=== PATIENT | female | born 1955 | race Caucasian/White ===

== ENCOUNTER → 2016-05-07 | Outpatient (REF) | payer MEDICARE ==
[~2016-05-07] MED LIST: ABILIFY PO; ASPI81TA85 PO; BUPROPION PO; CITALOPRAM PO; CRES5TAB PO; FURO20TA PO; FUROSIMIDE PO; PERCOCET PO; RITALIN PO; [UNRECOGNIZED DRUG - OTHER] PO
== END ==
LOC: M SFHCCLAY 07:16
PROVIDERS: ATTEND Family Medicine
DX: Z95.5 Presence of coronary angioplasty implant and graft (principal)

== ENCOUNTER → 2016-06-27 | Outpatient (REF) | payer MEDICARE | LOC: M SFHCCLAY 07:08 | PROVIDERS: ATTEND Family Medicine | DX: Z95.5 Presence of coronary angioplasty implant and graft (principal); I25.10 Atherosclerotic heart disease of native coronary artery without angina pectoris ==

== ENCOUNTER → 2017-01-11 | Outpatient (REF) | payer MEDICARE ==
[2017-01-11 12:34] LABS: ALBUMIN 3.9 GM/DL (3.2-5.2); ANION GAP 8 MEQ/L (8-16); BLOOD UREA NITROGEN 18 MG/DL (7-18); CALCIUM LEVEL 9.7 MG/DL (8.8-10.2); CARBON DIOXIDE LEVEL 31 MEQ/L (21-32); CHLORIDE LEVEL 104 MEQ/L (98-107); CHOLESTEROL LEVEL 159 MG/DL (<200); GLOMERULAR FILTRATION RATE > 60.0 (>45); GLUCOSE, FASTING 76 MG/DL (80-110); PHOSPHORUS LEVEL 4.5 MG/DL (2.5-4.9); POTASSIUM SERUM 4.7 MEQ/L (3.5-5.1); SODIUM LEVEL 143 MEQ/L (136-145); TRIGLYCERIDES LEVEL 70 MG/DL (<150)
== END ==
LOC: M LABDRAWC 11:34
PROVIDERS: ATTEND Nurse Practitioner Family
DX: I25.10 Atherosclerotic heart disease of native coronary artery without angina pectoris (principal); I10 Essential (primary) hypertension

== ENCOUNTER → 2017-04-10 | Outpatient (REF) | payer MEDICARE ==
[2017-04-10 11:09] LABS: HEMATOCRIT 43.4 % (36.0-47.0); HEMOGLOBIN 14.1 g/dl (12.0-16.0); MEAN CORPUSCULAR HEMOGLOBIN 31.2 pg (27.0-33.0); MEAN CORPUSCULAR HGB CONC 32.5 g/dl (32.0-36.5); PLATELET COUNT, AUTOMATED 230 10^3/uL (150-450); RED BLOOD COUNT 4.52 10^6/uL (4.00-5.40); RED CELL DISTRIBUTION WIDTH 12.2 % (11.5-14.5); WHITE BLOOD COUNT 5.8 10^3/uL (4.0-10.0)
[2017-04-10 11:38] LABS: ERYTHROCYTE SEDIMENTATION RATE 4 mm/hr (0-30)
[2017-04-10 11:56] LABS: ALBUMIN 4.6 GM/DL (3.2-5.2); ALBUMIN/GLOBULIN RATIO 1.64 (1.00-1.93); ALKALINE PHOSPHATASE 129 U/L (45-117); ALT/SGPT 35 U/L (12-78); ANION GAP 8 MEQ/L (8-16); AST/SGOT 24 U/L (7-37); BILIRUBIN,TOTAL 0.4 MG/DL (0.2-1.0); BLOOD UREA NITROGEN 21 MG/DL (7-18); CALCIUM LEVEL 9.4 MG/DL (8.8-10.2); CARBON DIOXIDE LEVEL 30 MEQ/L (21-32); CHLORIDE LEVEL 104 MEQ/L (98-107); CREATININE FOR GFR 0.88 MG/DL (0.55-1.30); GLOMERULAR FILTRATION RATE > 60.0 (>45); GLUCOSE, FASTING 76 MG/DL (70-100); POTASSIUM SERUM 3.7 MEQ/L (3.5-5.1); SODIUM LEVEL 142 MEQ/L (136-145); TOTAL PROTEIN 7.4 GM/DL (6.4-8.2)
[2017-04-10 12:10] LABS: TOTAL PROTEIN 7.4 GM/DL (6.4-8.2)
[2017-04-10 12:58] LABS: ALBUMIN 4.53 GM/DL (3.29-5.55); ALBUMIN % 61.2 % (55.8-66.1); ALPHA-2-GLOBULINS 0.94 GM/DL (0.42-0.99); ALPHA-2-GLOBULINS % 12.7 % (7.1-11.8); BETA-1-GLOBULINS 0.52 GM/DL (0.28-0.60); BETA-2-GLOBULINS 0.42 GM/DL (0.19-0.55); BETA-2-GLOBULINS % 5.7 % (3.2-6.5); GAMMA GLOBULIN % 9.4 % (11.1-18.8)
[2017-04-10 14:27] LABS: IMMUNOTYPING SERUM IGG ABNORMAL (NORMAL); IMMUNOTYPING SERUM KAPPA ABNORMAL (NORMAL)
== END ==
LOC: M SFHCCLAY 08:14
DX: M89.8X9 Other specified disorders of bone, unspecified site (principal)
CPT/HCPCS: 84165

== ENCOUNTER → 2017-04-17 | Outpatient (CLI) | payer MEDICARE | LOC: M RAD 10:11 | DX: M51.06 Intervertebral disc disorders with myelopathy, lumbar region (principal); M48.062 Spinal stenosis, lumbar region with neurogenic claudication; M89.8X9 Other specified disorders of bone, unspecified site | CPT/HCPCS: 72148 ==

== ENCOUNTER → 2017-04-25 | Outpatient (REF) | payer MEDICARE ==
[2017-04-25 19:53] LABS: IMMUNOGLOBULIN G 703 MG/DL (681-1648); IMMUNOGLOBULIN M 31.6 MG/DL (40-230); TOTAL PROTEIN 7.1 GM/DL (6.4-8.2)
[2017-04-26 12:59] LABS: ALBUMIN 4.58 GM/DL (3.29-5.55); ALBUMIN % 64.5 % (55.8-66.1); ALPHA-1-GLOBULIN % 3.6 % (2.9-4.9); ALPHA-1-GLOBULINS 0.26 GM/DL (0.17-0.41); ALPHA-2-GLOBULINS 0.68 GM/DL (0.42-0.99); ALPHA-2-GLOBULINS % 9.6 % (7.1-11.8); BETA-1-GLOBULINS 0.47 GM/DL (0.28-0.60); BETA-1-GLOBULINS % 6.6 % (4.7-7.2); BETA-2-GLOBULINS % 5.7 % (3.2-6.5); GAMMA GLOBULINS 0.71 GM/DL (0.65-1.58)
[2017-04-28 00:07] LABS: FREE KAPPA LIGHT CHAINS SERUM 19.4 mg/L (3.3-19.4); FREE LAMBDA LIGHT CHAINS SERUM 16.8 mg/L (5.7-26.3); KAPPA/LAMBDA RATIO SERUM 1.15 (0.26-1.65)
== END ==
LOC: M LAB REF 17:19
DX: R77.9 Abnormality of plasma protein, unspecified (principal); D47.2 Monoclonal gammopathy
CPT/HCPCS: 84165

== ENCOUNTER → 2017-04-28 | Outpatient (REF) | payer MEDICARE ==
[2017-04-28 11:17] LABS: URINE VOLUME 1200 ML
[2017-04-28 11:35] LABS: TOTAL PROTEIN,RANDOM URINE 9.7 MG/DL (0.0-12.0); URINE TOTAL PROTEIN 9.7 MG/DL (0-12)
== END ==
LOC: M LAB REF 10:59
DX: D47.2 Monoclonal gammopathy (principal)

== ENCOUNTER → 2017-04-28 | Outpatient (CLI) | payer MEDICARE | LOC: M RAD 10:19 | DX: D47.2 Monoclonal gammopathy (principal); M25.78 Osteophyte, vertebrae; M51.36 Other intervertebral disc degeneration, lumbar region; M41.86 Other forms of scoliosis, lumbar region; M51.34 Other intervertebral disc degeneration, thoracic region; R93.8 Abnormal findings on diagnostic imaging of other specified body structures | CPT/HCPCS: 77075 ==

== ENCOUNTER → 2017-05-09 | Outpatient (CLI) | payer MEDICARE ==
[~2017-05-09] MED LIST changes: -ABILIFY PO; -ASPI81TA85 PO; -BUPROPION PO; -CITALOPRAM PO; -CRES5TAB PO; -FURO20TA PO; -FUROSIMIDE PO; -PERCOCET PO; +PROHANCE 279.3MG/ML 15ML VIAL (A9576) As Ordered; -RITALIN PO; -[UNRECOGNIZED DRUG - OTHER] PO
== END ==
LOC: M RAD 13:19
DX: D47.2 Monoclonal gammopathy (principal)
CPT/HCPCS: A9576

== ENCOUNTER → 2017-11-06 | Outpatient (REF) | payer MEDICARE ==
[2017-11-06 14:12] LABS: IMMUNOGLOBULIN G 804 MG/DL (681-1648); IMMUNOGLOBULIN M 32 MG/DL (40-230); TOTAL PROTEIN 7.4 GM/DL (6.4-8.2)
[2017-11-08 00:06] LABS: FREE KAPPA LIGHT CHAINS SERUM 22.1 mg/L (3.3-19.4); FREE LAMBDA LIGHT CHAINS SERUM 19.5 mg/L (5.7-26.3); KAPPA/LAMBDA RATIO SERUM 1.13 (0.26-1.65)
[2017-11-11 15:06] LABS: ALBUMIN 4.71 GM/DL (3.29-5.55); ALBUMIN % 63.7 % (55.8-66.1); ALPHA-1-GLOBULIN % 3.9 % (2.9-4.9); ALPHA-1-GLOBULINS 0.29 GM/DL (0.17-0.41); ALPHA-2-GLOBULINS 0.73 GM/DL (0.42-0.99); ALPHA-2-GLOBULINS % 9.8 % (7.1-11.8); BETA-1-GLOBULINS 0.47 GM/DL (0.28-0.60); BETA-1-GLOBULINS % 6.4 % (4.7-7.2); BETA-2-GLOBULINS 0.43 GM/DL (0.19-0.55); BETA-2-GLOBULINS % 5.8 % (3.2-6.5); GAMMA GLOBULIN % 10.4 % (11.1-18.8); GAMMA GLOBULINS 0.77 GM/DL (0.65-1.58)
== END ==
LOC: M LAB REF 13:05
DX: Z00.00 Encounter for general adult medical examination without abnormal findings (principal)

== ENCOUNTER → 2018-03-11 | Outpatient (REF) | payer MEDICARE ==
[~2018-03-11] MED LIST changes: +ABILIFY PO; +ASPI81TA85 PO; +BUPROPION PO; +CITALOPRAM PO; +CRES5TAB PO; +FURO20TA PO; +FUROSIMIDE PO; +PERCOCET PO; -PROHANCE 279.3MG/ML 15ML VIAL (A9576) As Ordered; +RITALIN PO; +[UNRECOGNIZED DRUG - OTHER] PO
[2018-03-11 17:13] LABS: HEMATOCRIT 43.2 % (36.0-47.0); HEMOGLOBIN 13.8 g/dl (12.0-15.5); MEAN CORPUSCULAR HEMOGLOBIN 30.3 pg (27.0-33.0); MEAN CORPUSCULAR HGB CONC 31.9 g/dl (32.0-36.5); MEAN CORPUSCULAR VOLUME 94.7 fl (80.0-96.0); PLATELET COUNT, AUTOMATED 270 10^3/uL (150-450); RED BLOOD COUNT 4.56 10^6/uL (4.00-5.40); WHITE BLOOD COUNT 4.9 10^3/uL (4.0-10.0)
[2018-03-11 17:31] LABS: ALT/SGPT 83 U/L (12-78); BILIRUBIN,TOTAL 0.3 MG/DL (0.2-1.0); BLOOD UREA NITROGEN 16 MG/DL (7-18); CALCIUM LEVEL 8.9 MG/DL (8.8-10.2); CARBON DIOXIDE LEVEL 30 MEQ/L (21-32); CHLORIDE LEVEL 105 MEQ/L (98-107); CHOLESTEROL LEVEL 149 MG/DL (<200); CHOLESTEROL RISK RATIO 2.328 (<5); FREE T4 0.91 NG/DL (0.76-1.46); GLOMERULAR FILTRATION RATE > 60.0 (>45); GLUCOSE, FASTING 81 MG/DL (70-100); HDL CHOLESTEROL 64 MG/DL (>40); LDL CHOLESTEROL 70 MG/DL (<100); NON-HDL-C 85 MG/DL; POTASSIUM SERUM 3.8 MEQ/L (3.5-5.1); SODIUM LEVEL 142 MEQ/L (136-145); TOTAL PROTEIN 6.9 GM/DL (6.4-8.2); TRIGLYCERIDES LEVEL 76 MG/DL (<150)
[2018-03-11 17:57] LABS: APPEARANCE, URINE CLEAR (CLEAR); BACTERIA, URINE AUTO NEGATIVE (NEGATIVE); BILIRUBIN, URINE AUTO NEGATIVE (NEGATIVE); BLOOD, URINE BLOOD NEGATIVE (NEGATIVE); COLOR, URINE YELLOW (YELLOW); GLUCOSE, URINE (UA) AUTO NEGATIVE (NEGATIVE); KETONE, URINE AUTO NEGATIVE (NEGATIVE); LEUKOCYTE ESTERASE, URINE AUTO NEGATIVE (NEGATIVE); MUCUS, URINE SMALL (NEGATIVE); NITRITE, URINE AUTO NEGATIVE (NEGATIVE); PROTEIN, URINE AUTO NEGATIVE (NEGATIVE); RBC, URINE AUTO 0 /HPF (0-3); SPECIFIC GRAVITY URINE AUTO 1.008 (1.002-1.035); SQUAMOUS EPITHELIAL CELL UR AU 0 /HPF (0-6); TRANSITIONAL EPITHELIAL AUTO <1 /HPF; UROBILINOGEN, URINE AUTO 0.2 mg/dL (0.0-2.0); WBC, URINE AUTO 1 /HPF (0-3)
== END ==
LOC: M SFHCCLAY 10:39
PROVIDERS: ATTEND Family Medicine
DX: Z00.00 Encounter for general adult medical examination without abnormal findings (principal); M89.8X9 Other specified disorders of bone, unspecified site; Z95.5 Presence of coronary angioplasty implant and graft; M48.062 Spinal stenosis, lumbar region with neurogenic claudication; R53.82 Chronic fatigue, unspecified; L74.9 Eccrine sweat disorder, unspecified

== ENCOUNTER → 2018-04-15 | Outpatient (REF) | payer MEDICARE ==
[2018-04-15 18:31] LABS: ALBUMIN 4.2 GM/DL (3.2-5.2); BILIRUBIN,DIRECT 0.1 MG/DL (0.0-0.2); BILIRUBIN,TOTAL 0.5 MG/DL (0.2-1.0); TOTAL PROTEIN 7.2 GM/DL (6.4-8.2)
== END ==
LOC: M SFHCCLAY 11:02
PROVIDERS: ATTEND Family Medicine
DX: R94.5 Abnormal results of liver function studies (principal)

== ENCOUNTER → 2018-05-02 | Outpatient (CLI) | payer MEDICARE ==
--- NOTE | 2018-05-02 08:44 | REP ---
However quadrant sonography: History: Abnormal liver enzymes. Comparison CT study December 09, 2015. Findings: The gallbladder is surgically absent. There is a slightly coarse liver texture. No focal liver mass lesion is seen. No pancreatic abnormalities observed. The liver is not felt to be enlarged. Common bile duct is normal post cholecystectomy at 0.95 cm. No right renal abnormality is seen. The right kidney measures 11.0 x 4.3 x 4.2 cm. There is no evidence of ascites. Impression: Slightly coarse liver texture. No hepatomegaly or focal liver lesion. Post cholecystectomy. Otherwise negative. Electronically Signed by Shon Rodríguez MD 05/02/2018 08:36 A
[2018-05-02 08:57] LABS: TOTAL PROTEIN 6.7 GM/DL (6.4-8.2)
[2018-05-02 10:25] LABS: HEPATITIS B SURFACE ANTIBODY NEGATIVE (POSITIVE)
[2018-05-02 10:31] LABS: HEPATITIS B SURFACE ANTIGEN NEGATIVE (NEGATIVE)
[2018-05-02 10:58] LABS: HEPATITIS C VIRUS ABY INDEX < 0.0 INDEX (<0.8)
[2018-05-06 00:07] LABS: Alkaline Phosphatase Iso-Bone 58 % (14-68); Alkaline Phosphatase Iso-Intes 0 % (0-18); Alkaline Phosphatase Iso-Liver 42 % (18-85); TOTAL ALK PHOS 124 IU/L (39-117)
[2018-05-06 13:40] LABS: ALBUMIN % 63.7 % (55.8-66.1)
[2018-05-06 13:41] LABS: ALBUMIN 4.27 GM/DL (3.29-5.55); ALPHA-1-GLOBULINS 0.27 GM/DL (0.17-0.41); ALPHA-2-GLOBULINS 0.65 GM/DL (0.42-0.99); ALPHA-2-GLOBULINS % 9.7 % (7.1-11.8); BETA-1-GLOBULINS 0.44 GM/DL (0.28-0.60); BETA-1-GLOBULINS % 6.5 % (4.7-7.2); GAMMA GLOBULIN % 10.1 % (11.1-18.8); GAMMA GLOBULINS 0.68 GM/DL (0.65-1.58)
== END ==
LOC: M RAD 07:28
PROVIDERS: ATTEND Family Medicine
DX: R74.8 Abnormal levels of other serum enzymes (principal); Z90.49 Acquired absence of other specified parts of digestive tract; K76.89 Other specified diseases of liver

== ENCOUNTER → 2018-05-16 | Outpatient (CLI) | payer MEDICARE ==
[~2018-05-16] MED LIST changes: +ADDE20CA3 PO; +ASPI81TA26 PO; +BUPR1TAB56 PO; +CALCTAB41 PO; +CITA40TA6 PO; +COQ1200C2 PO; +FURO40TA2 PO; +GLUC1CAP10 PO; +MULT1TAB10 PO; +OXYC1TAB23 PO; +PANT40TA3 PO; +PERC5TAB12 PO; -PERCOCET PO; +VITA PO; +VITA400C7 PO; +VITA500T PO
--- NOTE | 2018-05-16 13:14 | REPMRS ---
Patient History The patient states she had a clinical breast exam in 04/2018. Patient is postmenopausal and is nulliparous. No known family history of cancer. No Hormone Replacement Therapy 3D TOMOSYNTHESIS WAS PERFORMED. Digital Woman Screen Mammo: May 16, 2018 - Exam #: [id number] Bilateral CC and MLO view(s) were taken. Technologist: Maria L Hemphill, Technologist Prior study comparison: January 02, 2016, digital woman screen mammo performed at [facility]. June 26, 2013, digital woman screen mammo performed at [facility] to [facility]. FINDINGS: There are scattered fibroglandular densities. There has been no change in the appearance of the mammogram from the prior studies. There is a mild amount of residual fibroglandular tissue which is fairly symmetric. There is no interval development of dominant mass, architectural distortion, or clustered microcalcification suggestive of malignancy. Assessment: BI-RADS/ACR category 1 mammogram. Negative Mammogram. Recommendation Routine screening mammogram in 1 year (for women over age 40). This mammogram was interpreted with the aid of an FDA-approved computer-aided dectection system. Electronically Signed By: Parth Lucas MD 05/16/18 [id number]
== END ==
LOC: M WHC 11:04
PROVIDERS: ATTEND Nurse Practitioner Family
DX: Z01.419 Encounter for gynecological examination (general) (routine) without abnormal findings (principal); Z12.31 Encounter for screening mammogram for malignant neoplasm of breast; Z78.0 Asymptomatic menopausal state; N95.2 Postmenopausal atrophic vaginitis; Z12.12 Encounter for screening for malignant neoplasm of rectum; F33.1 Major depressive disorder, recurrent, moderate; F10.20 Alcohol dependence, uncomplicated
CPT/HCPCS: 77063; 77067; 82270; G0101; G0123

== ENCOUNTER → 2018-05-16 | Outpatient (REF) | payer MEDICARE ==
[~2018-05-16] MED LIST changes: +ASPI1TAB PO; -ASPI81TA26 PO; +CITA-231 PO; -CITA40TA6 PO; -OXYC1TAB23 PO; -PERC5TAB12 PO; +PERCOCET PO
== END ==
LOC: M SFHCWAGY 11:15
PROVIDERS: ATTEND Nurse Practitioner Family
DX: Z12.4 Encounter for screening for malignant neoplasm of cervix (principal); N95.2 Postmenopausal atrophic vaginitis

== ENCOUNTER → 2018-05-22 | Outpatient (REF) | payer MEDICARE ==
[~2018-05-22] MED LIST changes: -ASPI1TAB PO; +ASPI81TA26 PO; -CITA-231 PO; +CITA40TA6 PO; +OXYC1TAB23 PO; +PERC5TAB12 PO; -PERCOCET PO
[2018-05-22 16:45] LABS: BLOOD UREA NITROGEN 23 MG/DL (7-18); CALCIUM LEVEL 9.3 MG/DL (8.8-10.2); CARBON DIOXIDE LEVEL 30 MEQ/L (21-32); CHLORIDE LEVEL 106 MEQ/L (98-107); CREATININE FOR GFR 0.88 MG/DL (0.55-1.30); GLOMERULAR FILTRATION RATE > 60.0 (>45); GLUCOSE, FASTING 86 MG/DL (70-100); POTASSIUM SERUM 3.6 MEQ/L (3.5-5.1); SODIUM LEVEL 143 MEQ/L (136-145)
[2018-05-22 17:15] LABS: HEMATOCRIT 42.5 % (36.0-47.0); HEMOGLOBIN 13.4 g/dl (12.0-15.5); MEAN CORPUSCULAR HGB CONC 31.5 g/dl (32.0-36.5); MEAN CORPUSCULAR VOLUME 95.1 fl (80.0-96.0); PLATELET COUNT, AUTOMATED 284 10^3/uL (150-450); RED BLOOD COUNT 4.47 10^6/uL (4.00-5.40); WHITE BLOOD COUNT 4.7 10^3/uL (4.0-10.0)
[2018-05-22 18:05] LABS: PARTIAL THROMBOPLASTIN TIME 25.9 SECONDS (25.4-37.6)
[2018-05-22 18:14] LABS: INR 1.07
== END ==
LOC: M SFHCCLAY 10:16
PROVIDERS: ATTEND Family Medicine
DX: M48.061 Spinal stenosis, lumbar region without neurogenic claudication (principal); Z95.5 Presence of coronary angioplasty implant and graft; K21.9 Gastro-esophageal reflux disease without esophagitis; S60.10XA Contusion of unspecified finger with damage to nail, initial encounter; X58.XXXA Exposure to other specified factors, initial encounter; Y92.89 Other specified places as the place of occurrence of the external cause
CPT/HCPCS: 80048; 85027; 85610; 85730; G0463

== ENCOUNTER 2018-06-02 14:15 | Inpatient (IN) | payer MEDICARE ==
[~2018-06-02] VITALS: Ht 157.5 cm; Wt 80.3 kg
[~2018-06-02 14:15] MED LIST changes: -PERC5TAB12 PO
--- NOTE | 2018-06-05 17:28 | HPE ---
DATE OF ADMISSION: 06/16/2018 ATTENDING PHYSICIAN: Dr. Tim Samuel CHIEF COMPLAINT: Back pain, pain down her left greater than her right leg. HISTORY: This is a pleasant 62-year-old female patient with progressively worsening back pain and pain radiating mainly down her left lower extremity but at times down her right lower extremity. She has failed to improve with conservative management to include gabapentin, physical therapy, rest and activity modification. She has elected or surgery for her continued symptoms. She has been consented by Dr. Samuel for a left unilateral laminectomy and fusion at L4-5 with the use of iliac crest bone graft as well as bone from the bone bank. MRI of her lumbar spine notable for spinal stenosis, most significantly at L4-5. There is a spondylolisthesis also noted at L4-5. X-rays notable for a dynamic spondylolisthesis measuring a change from 6-7 mm between flexion and extension views. Medical optimization by Dr. Montero as well as through her rating examiner, Dr. Lainez. CURRENT MEDICATIONS: - lysine 1000 mg three tablets once per day - Ritalin SR 20 mg one tablet three times a day - 81 mg aspirin once per day, she will discontinue that five days prior to surgery - selenium 200 mcg one tablet once per day - Celexa 40 mg one tablet once per day - bupropion HCl 200 mg one tablet twice per day - pantoprazole 40 mg one tablet once per day - tizanidine 2 mg two tablets in the morning, three tablets in the evening - Lasix 40 mg one and one-half tablet once per day ALLERGIES: No known drug allergies. PAST MEDICAL HISTORY: Includes: 1. Chronic fatigue syndrome. 2. Hypertension. 3. Coronary artery disease, 4. Depression. 5. History of three acute myocardial infarctions (MIs). 6. Fibromyalgia. 7. Lumbar spinal stenosis primarily at L4-5. PAST SURGICAL HISTORY: She has had ventral hernia repair, a gastric bypass, coronary artery stents, a ganglion cyst excision. FAMILY HISTORY: Noncontributory. REVIEW OF SYSTEMS: Denies fever or chills. Denies chest pain, shortness of breath, or cough. Denies difficulty breathing. Denies abdominal pain. Denies nausea or vomiting. Notes persistent pain in her back with pain mainly radiating down her left leg, some down her right leg. Denies any recent upper respiratory illness (URI) or urinary tract infection (UTI) symptoms. Denies loss of bowel or bladder control. PHYSICAL EXAMINATION: Reveals an alert female patient. She ambulates with a relatively normal gait. She does not use assistive devices. Her gait is not wide based. Straight leg raise testing is negative on examination. Light touch is intact in the lower extremities. There is some mild tenderness along the lumbar spine without step-offs or deviations. The skin around the back is intact. Neck is supple without adenopathy or jugular venous distention (JVD). Lungs are clear to auscultation without rales or wheeze. Heart: Regular rate and rhythm. Abdomen: Bowel sounds are present. Vital signs: Height 62 inches. Weight 181 pounds. Temperature 98.0, blood pressure 130/80, respiratory rate 14, pulse 70. LABORATORY DATA: None collected. IMPRESSION: Lumbar degenerative disc disease, lumbar spondylolisthesis at L4-5 that is dynamic in nature, spinal stenosis most notably at L4-5. PLAN: She is consented by Dr. Samuel for a left unilateral laminectomy at L4-5 and fusion with the use of pedicle screws at L4-5 and an iliac crest graft and bone from the bone bank.
[2018-06-16] MEDS ORDERED: PERCOCET 5MG/325MG TAB PO ONE (06:00)
[2018-06-16] MEDS ORDERED: LR 1,000 ML IV ONE (06:00)
[2018-06-16] MEDS ORDERED: BUPIVACAINE/EPIN 0.25% 30 ML VIAL As Ordered ONE (17:10)
[2018-06-16] MEDS ORDERED: THROMBIN SOLN 20,000 UNITS KIT As Ordered ONE (17:10)
[2018-06-16] MEDS ORDERED: BUPIVACAINE HCL 0.5% 10 ML VIAL As Ordered ONE (17:10)
[2018-06-16] MEDS ORDERED: TRANEXAMIC ACID 100 MG/ML 10ML VIAL As Ordered ONE (17:10)
[2018-06-16] MEDS ORDERED: EPINEPHrine INJ 1 MG/ML 1ML AMP As Ordered ONE (17:11)
[2018-06-16] MEDS ORDERED: VANCOMYCIN HCL 500 MG/10 ML VIAL (J3370) As Ordered ONE (17:11)
[2018-06-16] MEDS ORDERED: BACITRACIN PWD 50,000 UNITS VIAL As Ordered ONE (17:11)
[2018-06-16] MEDS ORDERED: BUPIVACAINE LIPOSOME/PF 1.3% 20ML VIAL (13.3MG/ML)(EXPAREL)(C9290 PER1MG) As Ordered ONE (17:11)
[2018-06-16] MEDS ORDERED: ROCURONIUM BROMIDE 50 MG/5 ML VIAL As Ordered ONE ×2 (18:41→19:57)
[2018-06-16] MEDS ORDERED: fentaNYL 100 MCG/2 ML INJECTION (J3010) As Ordered ONE (18:41)
[2018-06-16] MEDS ORDERED: LIDOCAINE 2% INJ 100 MG/5 ML SDV (FOR ANES.) As Ordered ONE (18:41)
[2018-06-16] MEDS ORDERED: PROPOFOL 200 MG/20 ML VIAL As Ordered ONE (18:41)
[2018-06-16] MEDS ORDERED: MIDAZOLAM INJ 2 MG/2 ML VIAL (J2250) As Ordered ONE (18:41)
[2018-06-16] MEDS ORDERED: HYDROmorphone HCL 2 MG/ML 1ML VIAL (J1170) As Ordered ONE (19:38)
[2018-06-16] MEDS ORDERED: dexameTHASONE 4 MG/ML 1ML VIAL (J1100) As Ordered ONE (19:42)
[2018-06-16] MEDS ORDERED: ONDANSETRON 4MG/2ML VIAL (J2405) As Ordered ONE (19:50)
[2018-06-16] MEDS ORDERED: PHENYLephrine HCL 500 MCG/5 ML (100MCG/ML) SYRINGE (J2370) As Ordered ONE (20:01)
[2018-06-16] MEDS ORDERED: DESFLURANE 240 ML INHALANT As Ordered ONE (22:03)
[2018-06-16] MEDS ORDERED: ceFAZolin 2 GM/D5W 50 ML IV BAG (J0690 PER 500MG) As Ordered ONE (22:51)
[2018-06-16] MEDS ORDERED: SUGAMMADEX SODIUM 500 MG/5 ML VIAL (BRIDION) As Ordered ONE (23:58)
[2018-06-17] VITALS (9 sets, daily range): BP systolic 93–147; BP diastolic 47–94
[2018-06-17] MEDS: fentaNYL 100 MCG/2 ML INJECTION (J3010) IV PRN ×2 (00:24→00:30)
[2018-06-17] MEDS: PERCOCET 5MG/325MG TAB PO PRN ×7 (00:24→22:22)
[2018-06-17] MEDS ORDERED: PERCOCET 5MG/325MG TAB As Ordered ONE (00:25)
[2018-06-17] MEDS ORDERED: METOCLOPRAMIDE INJ 10MG/2ML VIAL (J2765) IV PRN (00:30)
[2018-06-17] MEDS ORDERED: PERCOCET 5MG/325MG TAB PO PRN (00:30)
[2018-06-17] MEDS ORDERED: PROMETHAZINE INJ 25 MG/ML VIAL (J2550) IV PRN (00:30)
[2018-06-17] MEDS ORDERED: HYDROMORPHONE HCL 0.5 MG/ 0.5 ML SYRINGE (J1170 PER 1) IV PRN (00:30)
[2018-06-17] MEDS ORDERED: LR 1,000 ML IV SCH (00:30)
[2018-06-17] MEDS ORDERED: ONDANSETRON 4MG/2ML VIAL (J2405) IV PRN (00:30)
[2018-06-17] MEDS: tiZANidine 4 MG TAB PO PRN (03:03)
[2018-06-17] MEDS: D5W/LR 1,000 ML IV SCH ×4 (03:03→23:16)
[2018-06-17] MEDS: METAMUCIL (PSYLLIUM) PACKET PO SCH (08:30)
[2018-06-17] MEDS: CitaloPRAM (CeleXA) 20 MG TAB PO SCH (08:31)
[2018-06-17] MEDS: METHYLPHENIDATE 20 MG SR TAB (RITALIN SR) PO SCH ×3 (08:31→22:22)
[2018-06-17] MEDS: PANTOPRAZOLE 40MG TAB (PROTONIX) PO SCH (08:31)
[2018-06-17] MEDS: FUROSEMIDE 20 MG TAB PO SCH (08:31)
[2018-06-17] MEDS: buPROPion 100 MG TAB PO SCH ×2 (08:31→22:22)
[2018-06-17] MEDS: **UNRESOLVED NON-FORMULARY MED ORDER XX SCH (08:32)
[2018-06-17] MEDS ORDERED: PERC5TAB12 PO (08:37)
--- NOTE | 2018-06-17 09:05 | REP ---
Partial lumbar spine series: Three views. History: Spinal spondylolisthesis. 1 minute 41 seconds of fluoroscopy time is reported. Findings: Two last image hold fluoroscopically obtained spot radiographs and a portable cross-table lateral radiograph of the lower lumbar spine document operative fusion across the L4-5 disc level. Electronically Signed by Shon Rodríguez MD 06/17/2018 08:56 A
--- NOTE | 2018-06-17 11:14 | RO ---
DATE OF PROCEDURE: 06/16/2018 PREOPERATIVE DIAGNOSES: Lumbar spondylolisthesis, lumbar spinal stenosis L4-5 and neurogenic claudication. POSTOPERATIVE DIAGNOSES: Lumbar spondylolisthesis, lumbar spinal stenosis L4-5 and neurogenic claudication. PROCEDURE PERFORMED: Left unilateral laminectomy L4 for decompression of the thecal sac and exiting nerve root, additional level left unilateral laminectomy L5 for decompression of thecal sac and traversing nerve root bilaterally, posterior spinal arthrodesis intertransverse L4 to L5 bilateral, application of non-segmental spinal hardware L4 pedicle screw, L5 pedicle screw bilaterally, harvest and placement of left iliac crest bone graft for spine surgery, use of local graft and donor graft. SURGEON: Tim Samuel MD AUTOMOTIVE TIRE WORKER: FLIP Ramos ANESTHESIA: General. Estimated blood loss was 115 mL, replaced with crystalloid. No complications. Components used include a MyTradeium system 635 mm two 7 x 45 polyaxial external screws, two 7 x 40 polyaxial screws and appropriate set caps and two 35 mm connecting rods. INDICATIONS: Intractable discomfort radiating down the left more than the right lower extremity. MRI evidence of spondylolisthesis and spinal stenosis L4-5 as well as degenerative changes. The patient has elected for surgery and consent reviewed in detail with the patient including a jagdeep discussion of the pathology involved, procedure proposed, alternatives including doing nothing, risks including but not limited to pain, failure, infection, bleeding, blood loss, incomplete relief of symptoms, nerve injury, need for more surgery, blood clots or some other problem. The patient agrees to proceed. OPERATIVE COURE: Identified in the holding area. Site side verified. Brought to the operating room. Anesthesia was administered. She was positioned on the Macario frame for exposure of the lumbar spine. Once I and the business development specialist were comfortable with the patient's positioning, she was sterilely prepped and draped in the usual fashion. The patient received perioperative antibiotics of Kefzol; 2 grams was re-dosed at 4 hours. The incision was outlined with a marking pen, infiltrated with 0.25% Marcaine with epinephrine. I utilized 3.5 loupe magnification and a headlamp for the first portion of the procedure and for the laminectomy we utilized the sterilely draped microscope. Incision was made with a #10 blade and developed down through skin and subcuticular tissues to the posterior lumbar fascia. Crossing of the fibers at L4-5 was appreciated. Most of the patient's body mass seemed to be concentrated on the posterior region. The incision was relatively deep. Sharp knife was utilized to open the posterior lumbar fascia preserving the midline. Dissection continued to the left of midline down exposing the interspace at L3-4 and the interspace at L4-5. I drilled the L3 inferior lamina over the L4 pedicle access point. A blunt probe was placed in the lamina and a cross-table lateral was taken to verify levels. Once this was accomplished, we finished exposing from the patient's left side out to the transverse processes of L4 and L4, and I dissected out the transverse processes on the patient's contralateral side at L4 and L5. Once this was accomplished, I removed some of the posterior lamina using Leksell. This bone graft was retained. The operating microscope was sterilely draped and my loupes were removed so I could use the operating microscope. The high-speed bur was utilized to implement left unilateral laminectomy of L4 undercutting the spinous process and into L5 through the bare area of L5 undercutting the spinous process of L5. The ligamentum flavum was quite hypertrophic. It was elevated and removed using curettes and Kerrison's. This exposed the thecal sac. The facet was quite hypertrophic on the left side. I removed portions of the medial spur off of the facet as well as ligamentum flavum and decompressed the lateral recess on the patient's left side. Once this was accomplished, I utilized the broach to further develop the dissection over the horizon of the thecal sac to the contralateral side. I utilized curved curettes to free additional ligamentum flavum in the subarticular space on the patient's right side over the horizon. This was removed using #2 long Kerrison. Once this was accomplished, I probed the neural foramina with a [place] Fred probe bilaterally. Irrigation was accomplished. Thrombin Gelfoam was utilized for hemostasis. He also utilized tranexamic acid (TXA), which was placed in the wound for hemostasis. It was allowed to stand for a minute. We exposed the left iliac crest. Mr. Davis utilized Dalia retractors. I opened through a separate fascial incision, removed the posterior superior iliac spine and then utilized curettes to obtain morselized autograft. This was retained. The iliac crest wound was irrigated with some TXA. Dry Gelfoam was placed in the wound. The wound was closed with interrupted stitch and I utilized Exparel local anesthetic solution around the iliac crest harvest site injecting it with a 22-gauge needle. Once this was accomplished, we placed pedicle screws. Mr. Davis utilized Dalia retractors. We brought in the C-arm. We re-gowned with lead gowns. We first opened the pedicle with a divot at the mammillary body on the left at L4 and L5. AP fluoroscopy was utilized to verify the lateral aspect of the pedicle. Once this accomplished, lateral fluoroscopy was utilized. I moved the pedicle probe through the pedicle into the vertebral body at L4 and I probed using a ball-tip wire. Once this was accomplished, I utilized the tap, measured for a size 45 mm at L4, 40 mm at L5, and I placed the appropriate 7 mm screws. At this point, transverse processes were again exposed with Mr. Davis using a Dalia, decorticated and I placed iliac crest bone graft and local graft as well as DBX putty over the transverse processes on the left side. Once this was accomplished, we achieved the pedicle screw placement on the patient's right side in a similar fashion. This included using the ball-tipped guide to verify the pedicle tracts. Again, we utilized 45 screws at L4 4, 40 screws at L5. Connecting rods were placed. I distracted across the screw heads and locked using the counter torque. I also placed iliac crest bone graft between the transverse processes on the right side as well as demineralized bone matrix putty. The facet and interlaminar area I also placed the local bone mixed with donor bone and DBX putty. We had irrigated. We utilized again Exparel in the fascial tissues and subcuticular tissues and closed the posterior lumbar fascia with interrupted stitch, deep dermis with interrupted stitch. Pernio dressing placed. The patient was then moved to the hospital bed, extubated and moved to the recovery room in good condition moving all four extremities. Mr. Davis was present and participated in the entirety of the case as did I. For further details, please refer to medical record. Also of note, after pedicle screw and brittany placement we did obtain a final AP and lateral fluoroscopic image. All screws appeared to be in acceptable position. At the conclusion of case, all counts were correct.
[2018-06-18 02:00] VITALS: BP 114/55
[2018-06-18] MEDS: PERCOCET 5MG/325MG TAB PO PRN ×4 (02:29→20:55)
[2018-06-18 06:00] VITALS: BP 114/57
[2018-06-18] MEDS ORDERED: CelecoXIB (CeleBREX) 100 MG CAP PO ONE (08:15)
[2018-06-18] MEDS: **UNRESOLVED NON-FORMULARY MED ORDER XX SCH (09:00)
[2018-06-18] MEDS: METAMUCIL (PSYLLIUM) PACKET PO SCH (09:04)
[2018-06-18] MEDS: METHYLPHENIDATE 20 MG SR TAB (RITALIN SR) PO SCH (09:04)
[2018-06-18] MEDS: CitaloPRAM (CeleXA) 20 MG TAB PO SCH (09:04)
[2018-06-18] MEDS: FUROSEMIDE 20 MG TAB PO SCH (09:04)
[2018-06-18] MEDS: PANTOPRAZOLE 40MG TAB (PROTONIX) PO SCH (09:04)
[2018-06-18] MEDS: tiZANidine 4 MG TAB PO PRN (09:04)
[2018-06-18] MEDS: buPROPion 100 MG TAB PO SCH ×2 (09:04→20:53)
[2018-06-18] MEDS ORDERED: ONDANSETRON 4 MG TAB (S0181) PO PRN (09:30)
[2018-06-18 10:00] VITALS: BP 107/64
[2018-06-18] MEDS ORDERED: HYDROMORPHONE HCL 0.5 MG/ 0.5 ML SYRINGE (J1170 PER 1) IV PRN (10:15)
[2018-06-18] MEDS ORDERED: ONDANSETRON 4MG/2ML VIAL (J2405) IV PRN (10:15)
[2018-06-18] MEDS: GASTROGRAFIN SOLUTION 30ML PO SCH ×2 (11:01→11:02)
[2018-06-18] MEDS: HYDROMORPHONE HCL 0.5 MG/ 0.5 ML SYRINGE (J1170 PER 1) IV PRN ×2 (11:02→18:11)
[2018-06-18] MEDS ORDERED: SIMETHICONE 80 MG CHEW TAB PO PRN (11:15)
[2018-06-18 11:22] LABS: BASO % 0.2 % (0.0-1.0); EOS # 0.1 10^3/uL (0.0-0.50); EOS % 0.7 % (0.0-3.0); HEMATOCRIT 36.3 % (36.0-47.0); HEMOGLOBIN 11.4 g/dl (12.0-15.5); LYMPH # 0.6 10^3/uL (1.5-4.5); MEAN CORPUSCULAR HEMOGLOBIN 29.9 pg (27.0-33.0); MEAN CORPUSCULAR HGB CONC 31.4 g/dl (32.0-36.5); MEAN CORPUSCULAR VOLUME 95.3 fl (80.0-96.0); MONO # 0.8 10^3/uL (0.0-0.8); MONO % 8.2 % (0.0-5.0); NEUTROPHILS # 7.7 10^3/uL (1.8-7.7); NEUTROPHILS % 84.5 % (36.0-66.0); PLATELET COUNT, AUTOMATED 163 10^3/uL (150-450); RED BLOOD COUNT 3.81 10^6/uL (4.00-5.40); WHITE BLOOD COUNT 9.1 10^3/uL (4.0-10.0)
[2018-06-18] MEDS ORDERED: ISOVUE-370 76% 100ML VIAL (Q9967) As Ordered ONE (11:31)
[2018-06-18 12:03] LABS: ALBUMIN 3.2 GM/DL (3.2-5.2); ALT/SGPT 61 U/L (12-78); AMYLASE 87 U/L (25-115); BILIRUBIN,TOTAL 0.4 MG/DL (0.2-1.0); BLOOD UREA NITROGEN 12 MG/DL (7-18); CALCIUM LEVEL 8.4 MG/DL (8.8-10.2); CARBON DIOXIDE LEVEL 26 MEQ/L (21-32); CHLORIDE LEVEL 104 MEQ/L (98-107); CREATININE FOR GFR 0.59 MG/DL (0.55-1.30); GLOMERULAR FILTRATION RATE > 60.0 (>45); GLUCOSE, FASTING 166 MG/DL (70-100); LIPASE 515 U/L (73-393); POTASSIUM SERUM 3.4 MEQ/L (3.5-5.1); SODIUM LEVEL 140 MEQ/L (136-145)
[2018-06-18] MEDS: SIMETHICONE 80 MG CHEW TAB PO SCH ×3 (12:46→20:55)
[2018-06-18] MEDS: PREGABALIN 75 MG CAP(LYRICA) PO SCH ×2 (12:48→20:53)
[2018-06-18 14:00] VITALS: BP 92/50
--- NOTE | 2018-06-18 15:25 | REP ---
CT ABDOMEN/PELVIS WITH IV AND ORAL CONTRAST: HISTORY: Abdomen pain, nausea/vomiting. Patient is status post L4-L5 spinal fusion procedure on June 16, 2018. Comparison CT study is from December 09, 2015. CT CONTRAST DOSE: 100 mL of intravenous Isovue 370. CT FINDINGS: Preliminary digital automatic pad making machine operator radiograph demonstrates several loops of moderately to markedly dilated small bowel in the central abdomen consistent with small bowel obstruction. There are clips in the right upper quadrant post cholecystectomy. There are tubal ligation clamps in the pelvis. Transpedicle screws and connecting rods are seen at L4 and L5 bilaterally. The lung bases are essentially clear. The liver and spleen are normal in size, homogeneous in texture. The common bile duct is dilated post cholecystectomy measuring up to 19 mm in greatest diameter. In 2016, the common bile duct measured 12 mm. There is mild dilation of the main pancreatic duct as well. No pancreatic or ampullary mass is seen. There is no CT evidence of choledocholithiasis. The patient is status post gastric bypass procedure. The excluded stomach is dilated and filled with fluid and some air. Similarly, the duodenum and the C-loop are dilated. Proximal jejunal loops are moderately dilated with differential air-fluid levels consistent with a partial high-grade small bowel obstruction. The jejunal loops are dilated up to 5.7 cm in transverse dimension. At the jejunojejunostomy, there is even more dilation than this. However, this does not appear to be the obstructive lesion. There is a jejunojejunal intussusception in the right lower quadrant which is the obstructive lesion. There is a low-density mural thickening or mass effect suggesting a lead point intussusception. There is no evidence of free air. The small bowel distal to this is collapsed. There is formed stool throughout the colon. A normal appendix is seen. Left colonic diverticulosis is noted without diverticulitis. No uterine or ovarian or urinary bladder abnormality is seen. There is a small quantity of air in the urinary bladder consistent with instrumentation recently. The patient status post umbilical hernia repair, and there is a small seroma-hematoma cavity in the anterior abdominal wall in the midline. This is decreased in size from December 15, 2015. Postoperative changes are seen dorsal soft tissues at L4-5. Bone graft harvest site left iliac bone posteriorly. Some postoperative air and edema. IMPRESSION: Findings consistent with high-grade partial small bowel obstruction in the jejunum at the site of a jejunal intussusception. An area of mural thickening or small bowel mass is suspected here. Moderate to marked proximal small bowel dilation is seen extending up to the excluded stomach and duodenal C-loop (the patient is status post gastric bypass). Status post recent L4-5 posterior element fusion. There is biliary ductal and pancreatic dilation which may be related to the small bowel obstruction as well. Electronically Signed by Shon Rodríguez MD 06/18/2018 04:06 P
[2018-06-18] MEDS: ACETAMINOPHEN 500 MG TAB PO SCH ×2 (16:00→20:56)
[2018-06-18] MEDS ORDERED: NS 1,000 ML IV SCH (16:08)
[2018-06-18] MEDS: D5W/LR 1,000 ML IV SCH (16:45)
[2018-06-18 18:00] VITALS: BP 128/72
[2018-06-18] MEDS: AMITRIPTYLINE 25 MG TAB PO SCH (20:54)
[2018-06-18 22:00] VITALS: BP 127/64
[2018-06-19 02:00] VITALS: BP 112/71
[2018-06-19] MEDS: PERCOCET 5MG/325MG TAB PO PRN (02:13)
[2018-06-19] MEDS: D5W/LR 1,000 ML IV SCH ×4 (03:15→23:13)
--- NOTE | 2018-06-19 05:21 | REP ---
ABDOMEN, FLAT PLATE KUB, TWO VIEWS: HISTORY: NG tube placement. Air is present in small and large intestine. A single dilated loop of intestine is present. There are no air fluid levels. There is no pneumoperitoneum. Contrast material is present in the renal collecting systems and urinary bladder from a recent CT abdomen and pelvis. An NG tube is looped with the distal end looped in the esophagus. The distal tip of the NG tube is not seen in the present radiographs. IMPRESSION: 1. Nonspecific bowel gas pattern. 2. An NG tube is looped in the stomach. The distal tip of the NG tube is looped in the esophagus. The tip of the tube is not seen in the present radiographs. Electronically Signed by Saleem More MD 06/19/2018 08:31 A
[2018-06-19 06:00] VITALS: BP 140/63
--- NOTE | 2018-06-19 06:29 | CR ---
DATE OF CONSULTATION: 06/18/2018 REASON FOR CONSULTATION: Small bowel obstruction, question jejunal intussusception. BRIEF HISTORY OF PRESENT ILLNESS: The patient is a 62-year-old female who presents with a back surgery yesterday. Today she had some abdominal distension and abdominal pain and underwent treatment for this and recommendations concerning further evaluation by the primary care was a CT scan. CT scan showed distended small bowel with question of small bowel obstruction secondary to a possible jejunal intussusception. She has had some crampy abdominal pain. Had an NG tube placed and when she had the NG tube placed, she stated that her abdominal pain improved. She also had some flatus at that time. She states that she has been better with her pain over the last several hours. She has not had any blood per rectum and she has had a similar episode of small bowel obstruction in the recent past that has resolved with NG tube decompression. She has not had any fevers or chills. Overall has not had any progression of abdominal pain. PAST MEDICAL HISTORY: Significant for: History of chronic fatigue syndrome. Hypertension. Coronary artery disease. Depression. Myocardial infarction. Fibromyalgia. Lumbar stenosis with back pain. Status post ventral hernia repair. Status post gastric bypass. Coronary artery stents. Ganglion cyst excision. MEDICATIONS: Include: - lysine - Ritalin - aspirin - psyllium - Celexa - bupropion - pantoprazole - tizanidine - Lasix PHYSICAL EXAM: Reveals a 62-year-old female who looks stated age. HEENT is unremarkable. Neck: Supple without adenopathy. Lungs are clear to auscultation anteriorly. Heart is regular. Abdomen is soft, mildly distended but she has no peritoneal signs. No guarding. No rebound. No significant tenderness. Some mild discomfort with deep palpation but otherwise I am not appreciating any peritoneal signs at all at this time. Extremities are warm, well-perfused. Her NG tube is in but it is only draining some bloody fluid and it is down to 75 cm. I think it is a little bit far in. IMPRESSION AND PLAN: The patient has evidence of a small bowel obstruction. I am not convinced that this is a true jejunal intussusception. It may be associated with the anastomosis from her small bowel/jejunal anastomosis with some changes, at least it seems to be close to that area. Although most importantly, she states that her abdominal pain is better, she has had some flatus, it appears that it is most likely that she is probably starting to resolve this ileus/partial obstruction/jejunal intussusception at this time. I do feel that keeping her NG tube in is reasonable. However, I will get a KUB and possibly pull the NG tube out a little bit if necessary. Will keep her n.p.o., IV fluids and see how she does over the ensuing hours. Depending on how she is doing in the morning, will probably get a followup KUB unless she is having some bowel movements and if her NG tube is not putting out anything and she is having bowel movements, we will discontinue the NG tube. But at this point, given her current situation, I do not feel that surgical intervention is her next step. Nonoperative method seems to be working and will continue with that at this point.
[2018-06-19] MEDS ORDERED: traMADol 50 MG TAB PO PRN (08:00)
[2018-06-19 08:30] VITALS: BP 144/70
[2018-06-19] MEDS ORDERED: SENOKOT S TAB PO SCH (09:00)
[2018-06-19] MEDS ORDERED: MOM 30ML SUSPENSION UDC PO SCH (09:00)
[2018-06-19] MEDS: **UNRESOLVED NON-FORMULARY MED ORDER XX SCH (09:00)
[2018-06-19] MEDS ORDERED: MIRALAX *UNIT DOSE* 17GM PACKET PO SCH (09:00)
[2018-06-19] MEDS: FUROSEMIDE 20 MG TAB PO SCH (09:35)
[2018-06-19] MEDS: PANTOPRAZOLE 40MG TAB (PROTONIX) PO SCH (09:37)
--- NOTE | 2018-06-19 09:38 | REP ---
Abdomen series: Three views. History: Small bowel obstruction. Comparison study June 18, 2018. Findings: Upright chest radiograph demonstrates an NG tube doubled back upon itself in the cervical esophagus. The lungs are symmetrically aerated. There is some plate-like atelectasis in the left base laterally. No free subdiaphragmatic air is seen. Supine and right-side up decubitus views of the abdomen show no evidence of free intraperitoneal air. There is distension of the urine filled bladder. The urine in the urinary bladder is opacified by contrast from recently performed CT study. There are tubal ligation clamps seen. The patient is status post cholecystectomy and L4-5 lumbar spine fusion. There is a suture line in the left mid abdomen. Formed stool is seen in the proximal and distal colon. There are two or three loops of air-filled but nondilated small bowel in the central abdomen. Bowel gas pattern is similar to yesterday's radiographs. Impression: Distended urinary bladder filled with opacified urine from CT contrast. Nondilated air-filled small bowel loops in the left mid abdomen similar to prior study. Postoperative changes. The NG tube appears to be looped back upon itself in the cervical esophagus. This should be correlated clinically. Electronically Signed by Shon Rodríguez MD 06/19/2018 10:09 A
[2018-06-19] MEDS: PREGABALIN 75 MG CAP(LYRICA) PO SCH ×2 (09:39→21:03)
[2018-06-19] MEDS: CitaloPRAM (CeleXA) 20 MG TAB PO SCH (09:39)
[2018-06-19] MEDS: ACETAMINOPHEN 500 MG TAB PO SCH ×3 (09:39→21:02)
[2018-06-19] MEDS: buPROPion 100 MG TAB PO SCH ×2 (09:40→21:02)
[2018-06-19] MEDS: SENNA 8.6 MG TAB (SENOKOT) PO SCH ×2 (09:40→21:03)
[2018-06-19] MEDS: SIMETHICONE 80 MG CHEW TAB PO SCH ×4 (09:40→21:02)
[2018-06-19] MEDS: BISACODYL 10 MG SUPP PR SCH ×2 (09:40→21:00)
[2018-06-19] MEDS: METAMUCIL (PSYLLIUM) PACKET PO SCH (09:41)
[2018-06-19] MEDS: DOCUSATE SODIUM 100 MG CAP PO SCH ×2 (09:44→21:03)
[2018-06-19] MEDS: traMADol 50 MG TAB PO PRN ×2 (10:38→20:13)
--- NOTE | 2018-06-19 10:45 | IPNPDOC ---
Subjective Date Seen The patient was seen on 06/19/18. Subjective Chief Complaint/HPI s/p laminectomy and fusion Events since last encounter Developed abdominal pain resulting in possible jejunal intussusception and PSBO. Consulted by Dr. Yadav. NGT placed with relief of N/V/abdominal pain. + flatus and nugget like BM this am. Denies vomiting or nausea with clamping of NGT. Constitutional: Denies: Chills, Fever, Night Sweats Pulmonary: Denies: Dyspnea, Cough Cardiovascular: Denies: Chest Pain, Palpitations, Orthopnea, Paroxysmal Noc. Dyspnea, Lt Headedness Gastrointestinal: Denies: Nausea, Vomiting, Abdominal Pain Objective Physical Examination General Exam: Positive: Alert, No Acute Distress Neck Exam: Positive: Supple; Negative: JVD, thyromegaly Chest Exam: Positive: Clear to auscultation, Normal air movement Heart Exam: Positive: Rate Normal, Regular Rhythm, Normal S1, Normal S2; Negative: Murmurs, Rubs Abdomen Exam: Positive: Normal bowel sounds, Soft; Negative: Tenderness, Hepatospenomegaly Psych Exam: Positive: Mental status NL, Mood NL, Oriented x 3 A-FIB/CHADSVASC A-FIB History Current/History of A-Fib/PAF?: No Assessment /Plan Problems (1) SBO (small bowel obstruction) Status: Acute Response to Treatment: Improving Problem Text: + flatus and BM today. Await surgical recommendations regarding DC of NGT. (2) Spondylolisthesis, multiple sites in spine Status: Acute Problem Text: POD #1. Continue with PT/Ortho recommendations. (3) Fibromyalgia Status: Chronic Response to Treatment: Stable Problem Specific Plan: Monitor Clinically Problem Text: I adjusted her pain control regimen yesterday to include pregabalin, amitriptyline, and routine acetaminophen. She seems to be tolerating these medications reasonably well. Hopefully they will help modify her centralized perception of pain while she is in this postoperative period. I do anticipate she should go home with these medications, although after about 2-3 weeks, they can probably be discontinued. (4) HTN (hypertension) Status: Chronic Response to Treatment: Stable Problem Text: lasix 60 mg n hold. Currently taking 20 mg po daily. (5) Anxiety Status: Chronic Problem Text: Adderall on hold currently due to ileus/SBO. Resume in Am if symptoms continue to improve. Plan/VTE VTE Prophylaxis Ordered?: No VTE Exclusion Mechanical Proph: Low Risk for VTE Plan Family Medicine Attending Note: I saw and examined Mrs. East, discussed with VAMSI Brandon. Agree with her note as documented. Her CT yesterday showed likely jejunal intussusception. Dr. Yadav of general surgery was consulted, but the patient seemed to do well with an NG tube in place and we are opting for watchful waiting at this time. She seems to feel much better today, and I'm hopeful that she may be discharged tomorrow. 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, I&O, 24H, Fishbone Vital Signs/I&O Vital Signs Date Time Temp Pulse Resp B/P (MAP) Pulse Ox O2 Delivery O2 Flow Rate FiO2 06/19/18 08:30 97.7 96 18 144/70 (94) 94 06/17/18 05:30 2.0 I&O- Last 24 Hours up to 6 AM 06/19/18 05:59 Intake Total 720 ml Output Total 675 ml Balance 45 ml Laboratory Data 24H LABS Laboratory Tests 2 06/18/18 10:57: Immature Granulocyte % (Auto) 0.4, White Blood Count 9.1, Red Blood Count 3.81L, Hemoglobin 11.4L, Hematocrit 36.3, Mean Corpuscular Volume 95.3, Mean Corpuscular Hemoglobin 29.9, Mean Corpuscular Hemoglobin Concent 31.4L, Red Cell Distribution Width 13.5, Platelet Count 163, Neutrophils (%) (Auto) 84.5H, Lymphocytes (%) (Auto) 6.0L, Monocytes (%) (Auto) 8.2H, Eosinophils (%) (Auto) 0.7, Basophils (%) (Auto) 0.2, Neutrophils # (Auto) 7.7, Lymphocytes # (Auto) 0.6L, Monocytes # (Auto) 0.8, Eosinophils # (Auto) 0.1, Basophils # (Auto) 0.0, Nucleated Red Blood Cells % (auto) 0.0, Anion Gap 10, Glomerular Filtration Rate > 60.0, Blood Urea Nitrogen 12, Creatinine 0.59, Sodium Level 140, Potassium Level 3.4L, Chloride Level 104, Carbon Dioxide Level 26, Calcium Level 8.4L, Aspartate Amino Transf (AST/SGOT) 43H, Alanine Aminotransferase (ALT/SGPT) 61, Alkaline Phosphatase 119H, Total Bilirubin 0.4, Total Protein 6.0L, Albumin 3.2, Albumin/Globulin Ratio 1.14, Amylase Level 87, Lipase 515H CBC/BMP Laboratory Tests 06/18/18 10:57 Red Blood Count 3.81 L, Mean Corpuscular Volume 95.3, Mean Corpuscular Hemoglobin 29.9, Mean Corpuscular Hemoglobin Concent 31.4 L, Red Cell Distribution Width 13.5, Neutrophils (%) (Auto) 84.5 H, Lymphocytes (%) (Auto) 6.0 L, Monocytes (%) (Auto) 8.2 H, Eosinophils (%) (Auto) 0.7, Basophils (%) (Auto) 0.2, Neutrophils # (Auto) 7.7, Lymphocytes # (Auto) 0.6 L, Monocytes # (Auto) 0.8, Eosinophils # (Auto) 0.1, Basophils # (Auto) 0.0, Calcium Level 8.4 L, Aspartate Amino Transf (AST/SGOT) 43 H, Alanine Aminotransferase (ALT/SGPT) 61, Alkaline Phosphatase 119 H, Total Bilirubin 0.4, Total Protein 6.0 L, Albumin 3.2 Mechelle Barnes Jun 19, 2018 10:45 Noel Simmons MD Jun 19, 2018 20:05
--- NOTE | 2018-06-19 11:29 | CR ---
DATE OF CONSULTATION: 06/18/2018 PRIMARY CARE PROVIDER: Dr. Lázaro Montero ATTENDING PHYSICIAN: Dr. Noel Simmons This is a 62-year-old female with a past medical history of chronic back pain, for which she was admitted preoperatively, depressive disorder, chronic fatigue syndrome, diverticulitis, coronary artery disease, ventral hernia, MGUS, fibromyalgia, morbid obesity. Patient was admitted for spinal stenosis. She is status post left unilateral laminectomy to L4 for decompression of the thecal sac and exiting nerve root, left unilateral laminectomy of L5 for decompression of the thecal sac and traversing nerve root bilaterally, application of nonsegmental spinal hardware L4, pedicle screw, L5 pedicle screw bilaterally, harvest and placement of left iliac crest bone graft for spine surgery, and use of local graft and donor graft. This was completed by Dr. Tim Samuel. Patient was anticipated for discharge home today, however, she developed abdominal pain in the upper abdomen located to the left side worse than the right, however, it does radiate across to the right upper abdomen along with some vomiting. Patient states she has a history of diverticulitis, and this pain is similar to that. She takes antibiotics as needed from her primary care provider (PCP) and this usually resolves it. She was given a heating pad, which does provide a little bit of pain relief and states, however, that she continues with significant nausea despite as needed antiemetics. Patient's last bowel movement was 2-3 days ago. She is unable to verbalize what day her bowel movement was. She states she is passing gas. She has been afebrile since her surgery. PAST MEDICAL HISTORY: As already stated in the history of present illness (HPI). PAST SURGICAL HISTORY: 1. Gastric bypass in 2001. 2. Coronary stents to the LAD and circumflex in 2002. 3. Bilateral tubal ligation in 1998. 4. Sinus polyp surgery, 1997. 5. Laryngeal polyp surgery in 1972 and 1979. 6. Cholecystectomy in 1984. 7. Hernia repair, 2011. 8. Colonoscopy in 2012 and 2014. 9. Cystoscopy, 2016. FAMILY HISTORY: Father is at 69 years of age due to stroke, high cholesterol, hypertension, obesity. Mother is at 68 years of age due to stroke, high cholesterol, hypertension, obesity. Siblings, one brother has history of coronary artery disease (CAD). She has other siblings with history of hypertension, obesity, and CAD. SOCIAL HISTORY: She is a former smoker. She quit smoking in 2002. Denies any alcohol or recreational drugs. She drinks two cups of coffee a day. She is disabled and does not currently work. She is and lives with her spouse. ON PHYSICAL EXAM: Blood pressure stable at 101/58, oxygen saturation 96% on room air. Heart rate ranges from 84 to 100 range. Respiratory rate is 18. CARDIOVASCULAR: Heart rate and rhythm are regular. PULMONARY: Lungs are clear to auscultation bilaterally. ABDOMEN: Positive bowel sounds times all four quadrants. She is tender on light palpation to the abdomen. She is also attempting to vomit while provider is in the exam room. LOWER EXTREMITIES: Are without any edema. NEURO: Patient is alert and oriented times three. PSYCH: Patient appears anxious and slightly dramatic when discussing her symptoms. ASSESSMENT: 1. Patient is postoperative from 06/17/2018 with spinal surgery with Dr. Tim Samuel. 2. Abdominal pain with vomiting. 3. History of hypertension. 4. History of diverticulitis. 5. History of depression. 6. Fibromyalgia. 7. Chronic fatigue syndrome. 8. History of coronary artery disease (CAD). PLAN: A CT abdomen/pelvis has been ordered. We will evaluate complete blood count (CBC), CMP. Amylase and lipase were also ordered. Patient has antiemetics ordered, including Zofran by mouth and intravenous (IV). We will continue with her pain medications, and that can be managed by orthopedics. All of her routine medications have been continued, and we will continue to monitor patient. This was reviewed with patient as well as with Dr. Simmons, and he is in agreement with plan. Any further orders or management will be maintained throughout the day as her testing is completed. Family Medicine Attending Note: I saw and examined Mrs. East, discussed with VAMSI Brandon. Agree with her note as documented. My initial thoughts for this patient's abdominal pain is that this is related to her known history of central sensitization. 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 I suspect that she has a post-operative ilius and likely some areas of distended bowel and gas. We know that the brains of patient's with this syndrome, which has a genetic basis, tend to overinterpreting stimuli as painful. The best way to address these painful symptoms in patients with centralized pain is to down regulate the facilitatory neurotransmitters while up regulating inhibitory neurotransmitters in the dorsal columns. The gabapentinoids are effective at suppressing the excitatory amino acid glutamate, while tricyclic antidepressants are good up regulating inhibitory tone via norepinephrine in this case. She has a reported intolerance to gabapentin (severe diarrhea) which is rather suspect in my mind. Consequently, I will add pregabalin, which she has not had an adverse reaction to, to her regimen at 75mg BID. Additionally I added a lower dose of amitriptyline at 25mg qhs and routine acetaminophen (1gm TID). I took the liberty of stopping the narcotics for any pain less than 5, since they tend to cause more problems than help for patients with centralized pain. Orthopedics has ordered a CT of the abdomen and certainly if there are findings based on this test, we may need to treat them separately as well. I also believe that early mobilization will help with both her post-op recovery and this abdominal pain. I suspect that she will be able to be discharged in 1-2 days once her ileus resolves and we are able to rebalance her pain perception. (adult education instructor) MTDD
[2018-06-19 11:32] LABS: ALT/SGPT 136 U/L (12-78); BILIRUBIN,TOTAL 0.5 MG/DL (0.2-1.0); BLOOD UREA NITROGEN 10 MG/DL (7-18); CALCIUM LEVEL 8.4 MG/DL (8.8-10.2); CARBON DIOXIDE LEVEL 32 MEQ/L (21-32); CHLORIDE LEVEL 103 MEQ/L (98-107); CREATININE FOR GFR 0.58 MG/DL (0.55-1.30); GLOMERULAR FILTRATION RATE > 60.0 (>45); GLUCOSE, FASTING 111 MG/DL (70-100); POTASSIUM SERUM 3.3 MEQ/L (3.5-5.1); SODIUM LEVEL 139 MEQ/L (136-145); TOTAL PROTEIN 5.5 GM/DL (6.4-8.2)
[2018-06-19] MEDS ORDERED: POTASSIUM CHLORIDE 10 MEQ SR TABLET PO ONE ×2 (13:30→18:45)
[2018-06-19 14:00] VITALS: BP 142/74
[2018-06-19] MEDS ORDERED: ONDANSETRON 4 MG ORAL DISINTEGRATING TAB (Q0162 PER 1MG) PO PRN (18:45)
[2018-06-19] MEDS: AMITRIPTYLINE 25 MG TAB PO SCH (21:03)
[2018-06-19 22:00] VITALS: BP 140/67
[2018-06-20 06:00] VITALS: BP 128/79
[2018-06-20 06:41] LABS: BASO % 0.3 % (0.0-1.0); EOS # 0.2 10^3/uL (0.0-0.50); EOS % 3.6 % (0.0-3.0); HEMATOCRIT 32.1 % (36.0-47.0); HEMOGLOBIN 10.2 g/dl (12.0-15.5); LYMPH # 1.1 10^3/uL (1.5-4.5); LYMPH % 18.5 % (24.0-44.0); MEAN CORPUSCULAR HEMOGLOBIN 31.1 pg (27.0-33.0); MEAN CORPUSCULAR HGB CONC 31.8 g/dl (32.0-36.5); MEAN CORPUSCULAR VOLUME 97.9 fl (80.0-96.0); MONO # 0.4 10^3/uL (0.0-0.8); MONO % 7.1 % (0.0-5.0); NEUTROPHILS # 4.1 10^3/uL (1.8-7.7); NEUTROPHILS % 70.2 % (36.0-66.0); PLATELET COUNT, AUTOMATED 154 10^3/uL (150-450); RED BLOOD COUNT 3.28 10^6/uL (4.00-5.40); WHITE BLOOD COUNT 5.9 10^3/uL (4.0-10.0)
[2018-06-20 07:05] LABS: ALBUMIN 2.5 GM/DL (3.2-5.2); ALT/SGPT 96 U/L (12-78); BILIRUBIN,TOTAL 0.4 MG/DL (0.2-1.0); BLOOD UREA NITROGEN 11 MG/DL (7-18); CALCIUM LEVEL 8.2 MG/DL (8.8-10.2); CARBON DIOXIDE LEVEL 30 MEQ/L (21-32); CHLORIDE LEVEL 110 MEQ/L (98-107); GLOMERULAR FILTRATION RATE > 60.0 (>45); GLUCOSE, FASTING 86 MG/DL (70-100); POTASSIUM SERUM 4.3 MEQ/L (3.5-5.1); SODIUM LEVEL 143 MEQ/L (136-145); TOTAL PROTEIN 5.8 GM/DL (6.4-8.2)
[2018-06-20] MEDS: traMADol 50 MG TAB PO PRN (07:39)
[2018-06-20 08:12] VITALS: BP 132/73
[2018-06-20] MEDS: D5W/LR 1,000 ML IV SCH (08:30)
[2018-06-20] MEDS: BISACODYL 10 MG SUPP PR SCH (09:00)
[2018-06-20] MEDS: **UNRESOLVED NON-FORMULARY MED ORDER XX SCH (09:00)
--- NOTE | 2018-06-20 09:15 | IPN ---
DATE: 06/19/2018 The patient overall seems to be much better than she was yesterday. Initially, we got some x-rays this morning that showed some improvement; however, the report does not say improvement, but obviously there is more air in the colon and the small bowel was less dilated. There is still some air within the small bowel suggesting some residual ileus/partial obstruction, but overall this appears good. NG tube is not in any appropriate position and thus I have ordered the NG tube out. I had her started on clears. After she was started on clears, I saw her in the afternoon and she was doing well with clears, not having any nausea or vomiting. Her abdomen was soft and nontender. She has been afebrile without any fevers or chills and with flatus bowel movements. IMPRESSION AND PLAN: Ileus/partial obstruction has resolved. As an aside, her bladder was quite distended as well. Thus, it does lead me to the question of whether this was associated with postoperative ileus and decreased function issues, i.e., some urinary retention issues as well as bowel dysfunction, more so than a true obstructive component secondary to adhesions. In any case, she seems to be doing well. Will progress her to a regular diet. If she tolerates a regular diet tonight and tomorrow morning, then I would discharge her to home and follow up on a p.r.n. basis with myself, but followup with primary care otherwise.
[2018-06-20] MEDS: METAMUCIL (PSYLLIUM) PACKET PO SCH (09:38)
[2018-06-20] MEDS: CitaloPRAM (CeleXA) 20 MG TAB PO SCH (09:39)
[2018-06-20] MEDS: SIMETHICONE 80 MG CHEW TAB PO SCH (09:39)
[2018-06-20] MEDS: FUROSEMIDE 20 MG TAB PO SCH (09:39)
[2018-06-20] MEDS: SENNA 8.6 MG TAB (SENOKOT) PO SCH (09:39)
[2018-06-20] MEDS: buPROPion 100 MG TAB PO SCH (09:40)
[2018-06-20] MEDS: DOCUSATE SODIUM 100 MG CAP PO SCH (09:40)
[2018-06-20] MEDS: ACETAMINOPHEN 500 MG TAB PO SCH (09:41)
[2018-06-20] MEDS: PANTOPRAZOLE 40MG TAB (PROTONIX) PO SCH (09:41)
--- NOTE | 2018-06-20 10:03 | IPN ---
DATE: 06/20/2018 The patient overall has been doing well, has tolerated diet last night, as well as this morning. There was some question of possible obstruction, ileus, enteritis, intussusception, etc. on her CT scan. However, at this point, she has clearly resolved this. Yesterday's film showed that she had moved some gas from the small bowel into the colon and in addition, there was much less distension of the small bowel. Though it was not reported on the x-ray report, it appeared much better and she clinically was much better yesterday. In any case, she continues to do well. She had some bowel movements and is hoping to go home today. Her abdomen is soft, nontender, nondistended. She has been afebrile. IMPRESSION AND PLAN: The patient has had a ileus / partial obstruction, which has resolved at this point. My recommendation is that she continue on a regular diet, follow up on an as needed basis with myself. If she has any recurrence of symptoms, and we have discussed this, then she may need further evaluation with a diagnostic laparoscopy. Initially, I would recommend an upper GI with small-bowel follow-through as an outpatient should she continue with symptoms. She understands this as well but otherwise has been doing well without any chronic complaints.
[2018-06-20] MEDS: PREGABALIN 75 MG CAP(LYRICA) PO SCH (11:17)
--- NOTE | 2018-06-25 15:18 | DSES ---
DATE OF ADMISSION: 06/16/2018 DATE OF DISCHARGE: 06/20/2018 DISCHARGE DIAGNOSIS: Dynamic lumbar spondylolisthesis at L4-5 status post left unilateral laminectomy at L4 and L5 with fusion of L4-5. HISTORY: This is a 62-year-old female with progressively worsening lumbar degenerative disk disease and spondylolisthesis with neurogenic claudication. She had failed to improve with conservative treatment. She elected for surgery for her continued symptoms. PROCEDURE PERFORMED: Left unilateral laminectomy at L4 and L5 with fusion of L4-5. HOSPITAL COURSE: The patient was admitted on the day of surgery and underwent left unilateral laminectomy at L4 and L5 with fusion of L4-5 that was without complications. The patient's hospital course did encounter some complications with pain control and a resulting postop ileus handled by general surgery. On the day of discharge the patient was doing well. They were weightbearing, full weightbearing to both lower extremities. They are going to resume preoperative medications and diet. They will use oral medications for pain control. They will follow up in the office in 2 weeks for wound check. For the further details please refer to the medical record.
== END 2018-06-20 13:10 | disposition home or self-care (01) | DRG 460 ==
LOC: M OR 06-16 13:24 → M MS5PR 06-17 00:48
PROVIDERS: ADMIT Orthopaedic Surgery; ATTEND Orthopaedic Surgery
PROC: 01NB0ZZ Release Lumbar Nerve, Open Approach (ICD-10-PCS; 2018-06-16)
PROC: 0SG0071 Fusion of Lumbar Vertebral Joint with Autologous Tissue Substitute, Posterior Approach, Posterior Column, Open Approach (ICD-10-PCS; principal; 2018-06-16 15:45)
DX: M48.062 Spinal stenosis, lumbar region with neurogenic claudication (principal); K91.89 Other postprocedural complications and disorders of digestive system; R53.82 Chronic fatigue, unspecified; I10 Essential (primary) hypertension; M43.16 Spondylolisthesis, lumbar region; I25.10 Atherosclerotic heart disease of native coronary artery without angina pectoris; F32.9 Major depressive disorder, single episode, unspecified; F41.9 Anxiety disorder, unspecified; I25.2 Old myocardial infarction; M79.7 Fibromyalgia; Z98.84 Bariatric surgery status; Z95.5 Presence of coronary angioplasty implant and graft; Z79.82 Long term (current) use of aspirin; Z79.899 Other long term (current) drug therapy; Z90.49 Acquired absence of other specified parts of digestive tract; Z87.891 Personal history of nicotine dependence; Y83.8 Other surgical procedures as the cause of abnormal reaction of the patient, or of later complication, without mention of misadventure at the time of the procedure

== ENCOUNTER → 2018-09-25 | Outpatient (REF) | payer MEDICARE ==
[~2018-09-25] MED LIST changes: +PERC5TAB12 PO
[2018-09-25 11:46] LABS: HEMATOCRIT 41.3 % (36.0-47.0); HEMOGLOBIN 12.9 g/dl (12.0-15.5); MEAN CORPUSCULAR HEMOGLOBIN 28.4 pg (27.0-33.0); MEAN CORPUSCULAR HGB CONC 31.2 g/dl (32.0-36.5); MEAN CORPUSCULAR VOLUME 90.8 fl (80.0-96.0); PLATELET COUNT, AUTOMATED 287 10^3/uL (150-450); RED BLOOD COUNT 4.55 10^6/uL (4.00-5.40); WHITE BLOOD COUNT 4.6 10^3/uL (4.0-10.0)
[2018-09-25 12:02] LABS: ALBUMIN 3.8 GM/DL (3.2-5.2); ALT/SGPT 42 U/L (12-78); BILIRUBIN,TOTAL 0.2 MG/DL (0.2-1.0); BLOOD UREA NITROGEN 17 MG/DL (7-18); CALCIUM LEVEL 9.3 MG/DL (8.8-10.2); CARBON DIOXIDE LEVEL 35 MEQ/L (21-32); CHLORIDE LEVEL 106 MEQ/L (98-107); CHOLESTEROL LEVEL 150 MG/DL (<200); CHOLESTEROL RISK RATIO 1.785 (<5); FREE T4 0.82 NG/DL (0.76-1.46); GLOMERULAR FILTRATION RATE > 60.0 (>45); GLUCOSE, FASTING 82 MG/DL (70-100); HDL CHOLESTEROL 84 MG/DL (>40); LDL CHOLESTEROL 57 MG/DL (<100); NON-HDL-C 66 MG/DL; POTASSIUM SERUM 4.1 MEQ/L (3.5-5.1); SODIUM LEVEL 144 MEQ/L (136-145); TOTAL PROTEIN 6.9 GM/DL (6.4-8.2); TRIGLYCERIDES LEVEL 43 MG/DL (<150)
== END ==
LOC: M SFHCCLAY 07:54
PROVIDERS: ATTEND Family Medicine
DX: K21.9 Gastro-esophageal reflux disease without esophagitis (principal); Z95.5 Presence of coronary angioplasty implant and graft

== ENCOUNTER → 2018-10-28 | Outpatient (CLI) | payer MEDICARE ==
--- NOTE | 2018-10-28 16:03 | REP ---
Clinical: Cough with history of asthma . Comparison: 05/17/2010 . Technique: PA and lateral. Findings: The mediastinum and cardiac silhouette are normal. The lung restrepo are clear and without acute consolidation, effusion, or pneumothorax. The skeletal structures are intact and normal. Impression: 1. No acute cardiopulmonary process. Electronically Signed by Wilfred Huizar MD 10/28/2018 03:55 P
== END ==
LOC: M CLY 15:36
PROVIDERS: ATTEND Family Medicine
DX: R05 Cough (principal); J45.909 Unspecified asthma, uncomplicated
CPT/HCPCS: 71046; 94010; G0463

== ENCOUNTER → 2018-10-30 | Outpatient (REF) | payer MEDICARE ==
[2018-10-30 17:43] LABS: ERYTHROCYTE SEDIMENTATION RATE 11 mm/hr (0-30)
[2018-10-30 17:45] LABS: BASO % 0.7 % (0.0-1.0); EOS # 0.4 10^3/uL (0.0-0.5); EOS % 9.6 % (0.0-3.0); HEMATOCRIT 43.9 % (36.0-47.0); HEMOGLOBIN 13.9 g/dl (12.0-15.5); LYMPH # 1.3 10^3/uL (1.5-5.0); LYMPH % 29.4 % (24.0-44.0); MEAN CORPUSCULAR HEMOGLOBIN 29.1 pg (27.0-33.0); MEAN CORPUSCULAR HGB CONC 31.7 g/dl (32.0-36.5); MEAN CORPUSCULAR VOLUME 91.8 fl (80.0-96.0); MONO # 0.5 10^3/uL (0.0-0.8); MONO % 10.1 % (0.0-5.0); NEUTROPHILS # 2.2 10^3/uL (1.5-8.5); PLATELET COUNT, AUTOMATED 272 10^3/uL (150-450); RED BLOOD COUNT 4.78 10^6/uL (4.00-5.40); WHITE BLOOD COUNT 4.5 10^3/uL (4.0-10.0)
[2018-10-31 11:27] LABS: HEPATITIS B SURFACE ANTIBODY NEGATIVE (POSITIVE)
[2018-10-31 11:37] LABS: HEPATITIS B SURFACE ANTIGEN NEGATIVE (NEGATIVE)
[2018-10-31 12:06] LABS: HEPATITIS C VIRUS ABY INDEX < 0.0 INDEX (<0.8)
[2018-11-05 00:06] LABS: FREE KAPPA LIGHT CHAINS SERUM 28.5 mg/L (3.3-19.4); FREE LAMBDA LIGHT CHAINS SERUM 21.1 mg/L (5.7-26.3); KAPPA/LAMBDA RATIO SERUM 1.35 (0.26-1.65)
[2018-11-06 09:40] LABS: ALBUMIN 4.19 GM/DL (3.29-5.55); ALBUMIN % 59.8 % (55.8-66.1); ALPHA-1-GLOBULIN % 4.3 % (2.9-4.9); ALPHA-2-GLOBULINS 0.77 GM/DL (0.42-0.99); BETA-1-GLOBULINS 0.52 GM/DL (0.28-0.60); BETA-1-GLOBULINS % 7.4 % (4.7-7.2)
[2018-11-06 09:41] LABS: BETA-2-GLOBULINS 0.47 GM/DL (0.19-0.55); BETA-2-GLOBULINS % 6.7 % (3.2-6.5); GAMMA GLOBULIN % 10.8 % (11.1-18.8); GAMMA GLOBULINS 0.76 GM/DL (0.65-1.58)
== END ==
LOC: M SFHCCLAY 12:01
PROVIDERS: ATTEND Family Medicine
DX: R74.8 Abnormal levels of other serum enzymes (principal); D47.2 Monoclonal gammopathy; Z79.82 Long term (current) use of aspirin; Z79.899 Other long term (current) drug therapy

== ENCOUNTER → 2021-08-23 | Outpatient (CLI) | payer MEDICARE ==
[~2021-08-23] MED LIST changes: +PANT40TA29 PO; -PANT40TA3 PO; +VITA-243 PO; -VITA500T PO
== END ==
LOC: M CLY 15:02
PROVIDERS: ATTEND Family Medicine
DX: M19.041 Primary osteoarthritis, right hand (principal)

== ENCOUNTER → 2021-09-27 | Outpatient (REF) | payer MEDICARE | LOC: M LABDRAWC 17:09 | PROVIDERS: ATTEND Internal Medicine Cardiovascular Disease | DX: I25.10 Atherosclerotic heart disease of native coronary artery without angina pectoris (principal); I25.2 Old myocardial infarction; E78.49 Other hyperlipidemia ==

== ENCOUNTER → 2021-09-27 | Outpatient (REF) | payer MEDICARE ==
[2021-09-27 17:40] LABS: BASO % 0.7 % (0.0-1.0); EOS # 0.6 10^3/uL (0.0-0.5); EOS % 12.6 % (0.0-3.0); HEMATOCRIT 41.4 % (36.0-47.0); HEMOGLOBIN 13.3 g/dl (12.0-15.5); LYMPH # 1.3 10^3/uL (1.5-5.0); LYMPH % 27.8 % (24.0-44.0); MEAN CORPUSCULAR HEMOGLOBIN 30.2 pg (27.0-33.0); MEAN CORPUSCULAR HGB CONC 32.1 g/dl (32.0-36.5); MEAN CORPUSCULAR VOLUME 93.9 fl (80.0-96.0); MONO # 0.5 10^3/uL (0.0-0.8); MONO % 10.2 % (2.0-8.0); NEUTROPHILS # 2.2 10^3/uL (1.5-8.5); PLATELET COUNT, AUTOMATED 268 10^3/uL (150-450); RED BLOOD COUNT 4.41 10^6/uL (4.00-5.40); WHITE BLOOD COUNT 4.6 10^3/uL (4.0-10.0)
[2021-09-27 18:49] LABS: ALBUMIN 3.6 GM/DL (3.2-5.2); ALT/SGPT 79 U/L (12-78); BILIRUBIN,TOTAL 0.3 MG/DL (0.2-1.0); BLOOD UREA NITROGEN 16 MG/DL (7-18); CALCIUM LEVEL 9.2 MG/DL (8.8-10.2); CARBON DIOXIDE LEVEL 29 MEQ/L (21-32); CHLORIDE LEVEL 110 MEQ/L (98-107); CHOLESTEROL LEVEL 148 MG/DL (<200); CHOLESTEROL RISK RATIO 1.701 (<5); CREATININE FOR GFR 0.57 MG/DL (0.55-1.30); GLOMERULAR FILTRATION RATE > 60.0 (>45); GLUCOSE, FASTING 87 MG/DL (70-100); HDL CHOLESTEROL 87 MG/DL (>40); LDL CHOLESTEROL 51 MG/DL (<100); NON-HDL-C 61 MG/DL; POTASSIUM SERUM 3.8 MEQ/L (3.5-5.1); RHEUMATOID FACTOR QUANT < 10.0 IU/ML (<15.0); SODIUM LEVEL 142 MEQ/L (136-145); TOTAL PROTEIN 6.5 GM/DL (6.4-8.2); TRIGLYCERIDES LEVEL 52 MG/DL (<150); URIC ACID 5.1 MG/DL (2.6-6.0)
[2021-10-03 01:06] LABS: ANA (HEP2) Negative (.); CYCLIC CITRULLINATED PEPTIDE 6 units (0-19)
== END ==
LOC: M SFHCCLAY 09:32
PROVIDERS: ATTEND Nurse Practitioner Family
DX: J45.909 Unspecified asthma, uncomplicated (principal); I25.10 Atherosclerotic heart disease of native coronary artery without angina pectoris

== ENCOUNTER → 2021-11-06 | Outpatient (CLI) | payer MEDICARE | LOC: M CLY 12:23 | PROVIDERS: ATTEND Family Medicine | DX: R05.3 Chronic cough (principal) ==

== ENCOUNTER → 2023-07-15 | Outpatient (REF) | payer MEDICARE ==
[2023-07-15 17:45] LABS: ALBUMIN 3.9 G/DL (3.2-5.2); ALKALINE PHOSPHATASE 166 U/L (46-116); ALT/SGPT 52 U/L (7.0-40); AST/SGOT 35 U/L (<34); BILIRUBIN,TOTAL 0.3 MG/DL (0.3-1.2); BLOOD UREA NITROGEN 15 MG/DL (9-23); CALCIUM LEVEL 9.2 MG/DL (8.3-10.6); CARBON DIOXIDE LEVEL 27 MMOL/L (20-31); CHLORIDE LEVEL 108 MMOL/L (98-107); CREATININE FOR GFR 0.75 MG/DL (0.55-1.30); GLOMERULAR FILTRATION RATE > 60.0 (>45); GLUCOSE, FASTING 118 MG/DL (74-106); IRON (FE) 124 UG/DL (50-170); POTASSIUM SERUM 4.1 MMOL/L (3.5-5.1); SODIUM LEVEL 142 MMOL/L (136-145); TOTAL IRON BINDING CAPACITY 318 UG/DL (250-425); TOTAL PROTEIN 6.5 G/DL (5.7-8.2)
[2023-07-15 17:46] LABS: FERRITIN 101.6 NG/ML (7.3-270.7)
[2023-07-15 17:48] LABS: PTH INTACT 168.6 PG/ML (18.5-88.0)
[2023-07-15 17:51] LABS: HEMATOCRIT 44.9 % (36.0-47.0); HEMOGLOBIN 14.3 g/dl (12.0-15.5); MEAN CORPUSCULAR HGB CONC 31.8 g/dl (32.0-36.5); MEAN CORPUSCULAR VOLUME 97.2 fl (80.0-96.0); PLATELET COUNT, AUTOMATED 258 10^3/uL (150-450); RED BLOOD COUNT 4.62 10^6/uL (4.00-5.40)
[2023-07-15 17:59] LABS: HEMOGLOBIN A1c 5.2 % (4.0-6.0)
== END ==
LOC: M SFHCCLAY 12:50
PROVIDERS: ATTEND Family Medicine
DX: Z95.5 Presence of coronary angioplasty implant and graft (principal); K21.9 Gastro-esophageal reflux disease without esophagitis; J45.909 Unspecified asthma, uncomplicated; Z98.84 Bariatric surgery status; R53.82 Chronic fatigue, unspecified; L30.9 Dermatitis, unspecified; D50.9 Iron deficiency anemia, unspecified

== ENCOUNTER → 2023-07-17 | Outpatient (REF) | payer MEDICARE | LOC: M SFHCCLAY 11:09 | PROVIDERS: ATTEND Family Medicine | DX: R23.8 Other skin changes (principal) ==

== ENCOUNTER → 2023-10-03 | Outpatient (REF) | payer MEDICARE ==
[2023-10-03 18:41] LABS: CHOLESTEROL RISK RATIO 1.87 (<5); HDL CHOLESTEROL 87.7 MG/DL (>40); LDL CHOLESTEROL 55.7 MG/DL (<100); NON-HDL-C 76.3 MG/DL
== END ==
LOC: M LABDRAWC 17:39
PROVIDERS: ATTEND Internal Medicine Cardiovascular Disease
DX: I25.10 Atherosclerotic heart disease of native coronary artery without angina pectoris (principal); E78.49 Other hyperlipidemia; I10 Essential (primary) hypertension

== ENCOUNTER → 2023-12-04 | Outpatient (REF) | payer MEDICARE ==
[2023-12-04 18:28] LABS: ALBUMIN 3.8 G/DL (3.2-5.2); ALKALINE PHOSPHATASE 170 U/L (46-116); ALT/SGPT 50 U/L (7.0-40); AST/SGOT 24 U/L (<34); BASO % 0.5 % (0.0-1.0); BILIRUBIN,TOTAL 0.3 MG/DL (0.3-1.2); BLOOD UREA NITROGEN 22 MG/DL (9-23); CALCIUM LEVEL 9.4 MG/DL (8.3-10.6); CARBON DIOXIDE LEVEL 28 MMOL/L (20-31); CHLORIDE LEVEL 109 MMOL/L (98-107); CREATININE FOR GFR 0.71 MG/DL (0.55-1.30); EOS # 0.3 10^3/uL (0.0-0.5); EOS % 5.1 % (0.0-3.0); GLOMERULAR FILTRATION RATE > 60.0 (>39); GLUCOSE, FASTING 76 MG/DL (74-106); HEMATOCRIT 44.4 % (36.0-47.0); HEMOGLOBIN 14.1 g/dl (12.0-15.5); LYMPH # 1.6 10^3/uL (1.5-5.0); LYMPH % 26.9 % (24.0-44.0); MEAN CORPUSCULAR HGB CONC 31.8 g/dl (32.0-36.5); MEAN CORPUSCULAR VOLUME 97.6 fl (80.0-96.0); MONO # 0.6 10^3/uL (0.0-0.8); MONO % 10.6 % (2.0-8.0); NEUTROPHILS # 3.4 10^3/uL (1.5-8.5); NEUTROPHILS % 56.1 % (36.0-66.0); PLATELET COUNT, AUTOMATED 257 10^3/uL (150-450); POTASSIUM SERUM 4.2 MMOL/L (3.5-5.1); RED BLOOD COUNT 4.55 10^6/uL (4.00-5.40); SODIUM LEVEL 141 MMOL/L (136-145); TOTAL PROTEIN 6.6 G/DL (5.7-8.2); WHITE BLOOD COUNT 6.1 10^3/uL (4.0-10.0)
== END ==
LOC: M SFHCCLAY 10:24
PROVIDERS: ATTEND Family Medicine
DX: R19.7 Diarrhea, unspecified (principal)

== ENCOUNTER → 2023-12-05 | Outpatient (REF) | payer MEDICARE | LOC: M SFHCCLAY 11:19 | PROVIDERS: ATTEND Family Medicine | DX: R19.7 Diarrhea, unspecified (principal) ==

== ENCOUNTER → 2024-10-28 | Outpatient (REF) | payer MEDICARE ==
[~2024-10-28] MED LIST changes: -BUPR1TAB56 PO; +BUPR200T45 PO
== END ==
LOC: M SFHCCLAY 17:04
PROVIDERS: ATTEND Nurse Practitioner Family
DX: N89.8 Other specified noninflammatory disorders of vagina (principal)

== ENCOUNTER → 2024-11-17 | Outpatient (REF) | payer MEDICARE ==
[2024-11-17 14:07] LABS: PLATELET COUNT, AUTOMATED 224 10^3/uL (150-450)
[2024-11-17 14:27] LABS: ALT/SGPT 92.0 U/L (7.0-40); AST/SGOT 63.0 U/L (<34); CALCIUM LEVEL 9.0 MG/DL (8.3-10.6); CARBON DIOXIDE LEVEL 28.0 MMOL/L (20-31); CHLORIDE LEVEL 105.0 MMOL/L (98-107); CHOLESTEROL LEVEL 127.0 MG/DL (<200); CHOLESTEROL RISK RATIO 1.79 (<5); CREATININE FOR GFR 0.84 MG/DL (0.55-1.30); GLOMERULAR FILTRATION RATE 74.3 (>39); LDL CHOLESTEROL 39.2 MG/DL (<100); NON-HDL-C 56.4 MG/DL; POTASSIUM SERUM 4.0 MMOL/L (3.5-5.1); SODIUM LEVEL 139.0 MMOL/L (136-145); TRIGLYCERIDES LEVEL 86.0 MG/DL (<150)
== END ==
LOC: M LABDRAWC 12:42
PROVIDERS: ATTEND Internal Medicine Cardiovascular Disease
DX: I25.10 Atherosclerotic heart disease of native coronary artery without angina pectoris (principal); I10 Essential (primary) hypertension